=== PATIENT | female | born 1975 | race Caucasian/White ===

== ENCOUNTER → 2020-02-17 | Outpatient (CLI) | payer BC ==
[~2020-02-17] MED LIST: NO HOME MEDICATIONS
== END ==
LOC: MC.RAD 13:30
DX: Z12.31 Encounter for screening mammogram for malignant neoplasm of breast (principal)

== ENCOUNTER → 2023-08-26 | Outpatient (CLI) | payer OTHER ==
[~2023-08-26] MED LIST changes: +ADVIL200 MG PO; +Iohexol 300 - 100 ML VIAL IV ONE; +KENALOG-4040 MG/VIAL IJ; +NS 100 ML IV SCH; +PERCOCET 325 MG1 TA2 PO
== END ==
LOC: COL.RAD 13:36
DX: K59.89 Other specified functional intestinal disorders (principal); K92.1 Melena; Z98.890 Other specified postprocedural states
CPT/HCPCS: Q9967